=== PATIENT | male | born 1960 | race Caucasian/White ===

== ENCOUNTER 2017-04-20 17:45 | Inpatient (IN) | payer MEDICAID ==
[~2017-04-20] VITALS: Ht 190.5 cm; Wt 109.0 kg
[2017-04-20] MEDS ORDERED: SODIUM CHLORIDE FLUSH 10ML SYR IVF ONE (18:00)
[2017-04-20] MEDS ORDERED: DILTIAZEM 5 MG/ML, 5ML IVPush STA (18:13)
[2017-04-20] MEDS ORDERED: DILTIAZEM 125 MG in SODIUM CHLORIDE 0.9% 100 ML IV SCH (18:13)
[2017-04-20 18:18] LABS: BASOPHILS # (AUTO) 0.02 x10^3/uL (0-0.1); BASOPHILS % (AUTO) 0 % (0-1); EOSINOPHILS % (AUTO) 0 % (1-7); LYMPHOCYTES # (AUTO) 1.28 x10^3/uL (1-3.4); LYMPHOCYTES % (AUTO) 9 % (22-44); MD NO; MEAN CORPUSCULAR HEMOGLOBIN 32.7 pg (27.5-34.5); MEAN CORPUSCULAR HGB CONC 32.8 g/dL (33.2-36.2); MEAN CORPUSCULAR VOLUME 99.6 fL (81-97); MEAN PLATELET VOLUME 9.2 fL (7.4-10.4); MONOCYTES # (AUTO) 1.16 x10^3/uL (0.2-0.8); MONOCYTES % (AUTO) 8 % (2-9); NEUTROPHILS # (AUTO) 12.59 x10^3/uL (1.8-6.8); NEUTROPHILS % (AUTO) 84 % (42-75); PLATELET COUNT 134 x10^3/uL (130-400); RED BLOOD COUNT 6.07 x10^6/uL (4.38-5.82); RED CELL DISTRIBUTION WIDTH 17.5 % (9.4-14.8)
[2017-04-20] MEDS ORDERED: ADENOSINE 6 MG/2 ML ONE (18:18)
[2017-04-20] MEDS ORDERED: DILTIAZEM 5 MG/ML, 5ML ONE (18:25)
[2017-04-20 18:30] LABS: ALBUMIN 2.9 g/dL (3.4-5.0); ANION GAP 11 mmol/L (5-15); CALCIUM 9.4 mg/dL (8.5-10.1); CHLORIDE 94 mmol/L (98-107); CREATININE 1.65 mg/dL (0.7-1.3)
[2017-04-20] MEDS ORDERED: PLEASE ENTER HEIGHT AND WEIGHT MC SCH ×2 (18:30→19:30)
[2017-04-20 18:36] LABS: TROPONIN I 0.333 ng/mL (0.000-0.045)
[2017-04-20 19:00] LABS: INTERNATIONAL NORMALIZED RATIO 1.34 (0.93-1.1); PROTHROMBIN TIME 13.7 Seconds (9.6-11.5)
[2017-04-20] MEDS ORDERED: SODIUM CHLORIDE 0.9% 1,000ML IVBOLUS ONE ×2 (19:00→21:30)
[2017-04-20] MEDS ORDERED: LABETALOL 5MG/ML, 20ML IVPush STA (19:07)
[2017-04-20] MEDS ORDERED: LABETALOL 5MG/ML, 20ML ONE (19:09)
[2017-04-20] MEDS ORDERED: HEPARIN 25,000 UNITS/500ML PMX 500 ML IV PRN (20:00)
[2017-04-20] MEDS ORDERED: LABETALOL 5MG/ML, 20ML IVPush ONE (20:00)
[2017-04-20] MEDS ORDERED: HEPARIN 5,000 UNITS/ML, 1ML IV ONE (20:00)
[2017-04-20] MEDS ORDERED: HEPARIN 5,000 UNITS/ML, 1ML ONE (20:06)
[2017-04-20] MEDS ORDERED: HEPARIN 25,000 UNITS/500ML PMX 500 ML ONE (20:06)
[2017-04-20] MEDS ORDERED: OMNIPAQUE 350 MG/ML, 150 ML BOTTLE ONE (20:13)
[2017-04-20] MEDS ORDERED: DIGOXIN 0.25 MG/ML, 2ML ONE (20:38)
[2017-04-20] MEDS ORDERED: LEVOFLOXACIN/PMX 750MG/150ML 150 ML ONE (20:46)
[2017-04-20] MEDS ORDERED: DIGOXIN 0.25 MG/ML, 2ML IVPush ONE (21:00)
[2017-04-20] MEDS ORDERED: SODIUM CHLORIDE 0.9%, 500ML IVBOLUS ONE (21:00)
[2017-04-20] MEDS ORDERED: LEVOFLOXACIN/PMX 750MG/150ML 150 ML IV ONE (21:00)
[2017-04-20] MEDS ORDERED: NYSTATIN TOPICAL POWDER 15GM TP ONE (21:46)
[2017-04-20] MEDS ORDERED: THROMBIN 20,000 UNIT VIAL TP ONE ×2 (22:21→23:30)
[2017-04-20] MEDS ORDERED: HEPARIN 1,000 UNITS/ML, 30ML ONE (22:21)
[2017-04-20] MEDS ORDERED: PROTAMINE SULFATE 10 MG/ML, 5ML ONE (22:21)
[2017-04-20] MEDS ORDERED: BUPIVACAINE/PF 0.5% ONE (22:22)
[2017-04-20] MEDS ORDERED: EPINEPHRINE 1 MG/ML, 1ML ONE (22:22)
[2017-04-20] MEDS ORDERED: SODIUM CHLORIDE 0.9% 1,000 ML IV SCH (22:31)
[2017-04-20] MEDS ORDERED: MIDAZOLAM 1 MG/ML, 2ML ONE (22:41)
[2017-04-20] MEDS ORDERED: FENTANYL PF 100 MCG/2ML ONE (22:41)
[2017-04-20] MEDS ORDERED: BACITRACIN 50,000 UNIT ONE (22:48)
[2017-04-20] MEDS ORDERED: ROCURONIUM 10 MG/ML,10ML ONE (22:55)
[2017-04-20] MEDS ORDERED: CALCIUM CHLORIDE 10%, 10ML SYR ONE (22:55)
[2017-04-20] MEDS ORDERED: CEFAZOLIN 1,000 MG ONE (22:55)
[2017-04-20] MEDS ORDERED: SUCCINYLCHOLINE 20 MG/ML, 10ML ONE (22:55)
[2017-04-20] MEDS ORDERED: ETOMIDATE 40 MG/20 ML ONE (22:55)
[2017-04-20] MEDS ORDERED: ONDANSETRON 2MG/ML, 2ML IVPush PRN (23:00)
[2017-04-20] MEDS ORDERED: ACETAMINOPHEN 325 MG TABLET PO PRN (23:00)
[2017-04-20] MEDS ORDERED: PHARMACY INSTRUCTION MC SCH (23:00)
[2017-04-20] MEDS ORDERED: DILTIAZEM 5 MG/ML, 5ML IVPush PRN (23:00)
[2017-04-20] MEDS ORDERED: VANCOMYCIN PER PHARMACY MC PRN (23:00)
[2017-04-20] MEDS ORDERED: BUPIVACAINE/PF-EPI 0.5% 1:200K IM ONE (23:29)
[2017-04-20] MEDS ORDERED: HEPARIN 1,000 UNITS/ML, 30ML IVPush ONE (23:30)
[2017-04-20] MEDS ORDERED: BACITRACIN 50,000 UNIT IRRIG ONE (23:32)
[2017-04-21] MEDS ORDERED: VISIPAQUE 270 MG/ML, 50ML BOTTLE IV ONE (00:33)
[2017-04-21] MEDS ORDERED: LACTATED RINGERS 1,000 ML IV SCH (00:54)
[2017-04-21] MEDS ORDERED: PHARMACOKINETIC MONITORING MC PRN (01:00)
[2017-04-21 01:29] LABS: ANION GAP 9 mmol/L (5-15); CALCIUM 9.3 mg/dL (8.5-10.1); CHLORIDE 99 mmol/L (98-107); CREATININE 1.27 mg/dL (0.7-1.3)
[2017-04-21] MEDS ORDERED: VANCOMYCIN 2,800 MG in SODIUM CHLORIDE 0.9% 500 ML IV ONE (01:30)
[2017-04-21] MEDS: PIPERACILLIN/TAZO/PMX 3.375GM 50 ML IV SCH ×2 (01:53→08:28)
[2017-04-21] MEDS ORDERED: AMIODARONE 150 MG in DEXTROSE 5% 100 ML IV ONE (02:30)
[2017-04-21] MEDS ORDERED: FILTER 0.22 MICRON IV PRN (02:30)
[2017-04-21 02:35] LABS: BASOPHILS # (AUTO) 0.04 x10^3/uL (0-0.1); BASOPHILS % (AUTO) 0 % (0-1); EOSINOPHILS % (AUTO) 0 % (1-7); LYMPHOCYTES # (AUTO) 0.94 x10^3/uL (1-3.4); LYMPHOCYTES % (AUTO) 7 % (22-44); MD NO; MEAN CORPUSCULAR HEMOGLOBIN 32.4 pg (27.5-34.5); MEAN CORPUSCULAR HGB CONC 32.5 g/dL (33.2-36.2); MEAN CORPUSCULAR VOLUME 99.7 fL (81-97); MEAN PLATELET VOLUME 10.3 fL (7.4-10.4); MONOCYTES # (AUTO) 0.83 x10^3/uL (0.2-0.8); MONOCYTES % (AUTO) 6 % (2-9); NEUTROPHILS # (AUTO) 12.68 x10^3/uL (1.8-6.8); NEUTROPHILS % (AUTO) 88 % (42-75); PLATELET COUNT 133 x10^3/uL (130-400); RED BLOOD COUNT 5.21 x10^6/uL (4.38-5.82); RED CELL DISTRIBUTION WIDTH 17.8 % (9.4-14.8)
[2017-04-21] MEDS: AMIODARONE 900 MG in DEXTROSE 5% 482 ML IV PRN ×2 (02:47→22:11)
[2017-04-21 03:48] VITALS: BP 112/86
[2017-04-21 04:00] VITALS: BP 116/96
[2017-04-21] MEDS ORDERED: HEPARIN 25,000 UNITS/500ML PMX 500 ML IV PRN (05:00)
[2017-04-21 05:36] LABS: MEAN CORPUSCULAR HEMOGLOBIN 33.4 pg (27.5-34.5); MEAN CORPUSCULAR HGB CONC 33.6 g/dL (33.2-36.2); MEAN CORPUSCULAR VOLUME 99.3 fL (81-97); MEAN PLATELET VOLUME 9.7 fL (7.4-10.4); PLATELET COUNT 122 x10^3/uL (130-400); RED BLOOD COUNT 5.34 x10^6/uL (4.38-5.82); RED CELL DISTRIBUTION WIDTH 17.7 % (9.4-14.8)
[2017-04-21 05:38] LABS: ALANINE AMINOTRANSFERASE 199 U/L (12-78); ALBUMIN 2.3 g/dL (3.4-5.0); ANION GAP 11 mmol/L (5-15); CALCIUM 8.6 mg/dL (8.5-10.1); CHLORIDE 99 mmol/L (98-107)
[2017-04-21] MEDS: PROPOFOL 100 ML IV PRN ×4 (05:39→18:30)
[2017-04-21 05:43] LABS: ALKALINE PHOSPHATASE 89 U/L (45-117); TOTAL PROTEIN 6.2 g/dL (6.4-8.2); TROPONIN I 0.297 ng/mL (0.000-0.045)
[2017-04-21 06:09] LABS: BASOPHILS # (AUTO) 0.06 x10^3/uL (0-0.1); BASOPHILS % (AUTO) 0 % (0-1); EOSINOPHILS % (AUTO) 0 % (1-7); LYMPHOCYTES # (AUTO) 1.38 x10^3/uL (1-3.4); LYMPHOCYTES % (AUTO) 8 % (22-44); MD SCAN; MONOCYTES # (AUTO) 1.51 x10^3/uL (0.2-0.8); MONOCYTES % (AUTO) 9 % (2-9); NEUTROPHILS # (AUTO) 14.01 x10^3/uL (1.8-6.8); NEUTROPHILS % (AUTO) 83 % (42-75)
[2017-04-21] MEDS: HEPARIN 25,000 UNITS/500ML PMX 500 ML IV PRN ×2 (06:13→22:13)
[2017-04-21 06:51] LABS: CULTURE INDICATED? YES; MICROSCOPIC INDICATED
[2017-04-21] MEDS: THIAMINE 100 MG, FOLIC ACID 1 MG, MVI ADULT 10 ML in SODIUM CHLORIDE 0.9% 1,000 ML IV SCH (08:47)
[2017-04-21] MEDS: PANTOPRAZOLE 40 MG IV IVPush SCH (08:47)
[2017-04-21] MEDS: SODIUM CHLORIDE 0.45% 1,000 ML IV SCH ×2 (08:48→23:00)
[2017-04-21] MEDS ORDERED: FAMOTIDINE 20 MG/2 ML IVPush SCH (09:00)
[2017-04-21] MEDS ORDERED: AMIODARONE 50 MG/ML, 3ML IVPush ONE (09:30)
[2017-04-21] MEDS ORDERED: FILTER 0.22 MICRON IV ONE (09:30)
[2017-04-21] MEDS ORDERED: AMIODARONE 300 MG in DEXTROSE 5% 100 ML IV ONE (09:30)
[2017-04-21] MEDS: VANCOMYCIN 2,000 MG in SODIUM CHLORIDE 0.9% 500 ML IV SCH (16:36)
[2017-04-21] MEDS: PIPERACILLIN/TAZO/PMX 4.5GM 100 ML IV SCH ×2 (16:36→22:13)
[2017-04-21] MEDS: NYSTATIN TOPICAL POWDER 15GM TP SCH ×2 (17:00→20:02)
[2017-04-21] MEDS: NICOTINE 14MG/24 HR PATCH.TD24 TD SCH (20:02)
[2017-04-21] MEDS: HEPARIN 5,000 UNITS/ML, 1ML IV PRN (20:20)
[2017-04-21 20:57] LABS: HIT RESULT POSITIVE (NEGATIVE)
[2017-04-21 23:47] LABS: ALANINE AMINOTRANSFERASE 144 U/L (12-78); ALBUMIN 1.7 g/dL (3.4-5.0); ANION GAP 7 mmol/L (5-15); CHLORIDE 103 mmol/L (98-107); CREATININE 0.85 mg/dL (0.7-1.3)
[2017-04-21 23:49] LABS: ALKALINE PHOSPHATASE 78 U/L (45-117); BILIRUBIN,TOTAL 2.8 mg/dL (0.2-1.0); TOTAL PROTEIN 5.2 g/dL (6.4-8.2)
[2017-04-22] MEDS: PROPOFOL 100 ML IV PRN ×3 (01:36→11:49)
[2017-04-22] MEDS: PIPERACILLIN/TAZO/PMX 4.5GM 100 ML IV SCH ×4 (03:54→21:52)
[2017-04-22 04:00] VITALS: BP 111/69
[2017-04-22] MEDS: HEPARIN 5,000 UNITS/ML, 1ML IV PRN (04:19)
[2017-04-22] MEDS: VANCOMYCIN 2,000 MG in SODIUM CHLORIDE 0.9% 500 ML IV SCH ×3 (04:42→17:48)
[2017-04-22 06:34] LABS: ALANINE AMINOTRANSFERASE 131 U/L (12-78); ALBUMIN 1.7 g/dL (3.4-5.0); ANION GAP 9 mmol/L (5-15); CALCIUM 7.9 mg/dL (8.5-10.1); CHLORIDE 103 mmol/L (98-107); CREATININE 0.86 mg/dL (0.7-1.3)
[2017-04-22 06:36] LABS: ALKALINE PHOSPHATASE 74 U/L (45-117); BILIRUBIN,TOTAL 2.8 mg/dL (0.2-1.0); TOTAL PROTEIN 5.3 g/dL (6.4-8.2)
[2017-04-22 06:41] LABS: MEAN CORPUSCULAR HEMOGLOBIN 33.5 pg (27.5-34.5); MEAN CORPUSCULAR HGB CONC 34.2 g/dL (33.2-36.2); MEAN CORPUSCULAR VOLUME 97.8 fL (81-97); MEAN PLATELET VOLUME 10.1 fL (7.4-10.4); PLATELET COUNT 115 x10^3/uL (130-400); RED BLOOD COUNT 4.82 x10^6/uL (4.38-5.82)
[2017-04-22 07:08] LABS: MD YES
[2017-04-22 07:25] LABS: ANISOCYTOSIS 1+; BANDS%(MANUAL) 3 % (0-7); EOS#(MANUAL) 0.13 x10^3/uL (0.0-0.4); EOS% (MANUAL) 1 % (1-7); LYMPH#(MANUAL) 1.61 x10^3/uL (1-3.4); LYMPHS% (MANUAL) 12 % (22-44); MONOS#(MANUAL) 0.67 x10^3/uL (0.3-2.7); MONOS% (MANUAL) 5 % (2-9); SEG#(MANUAL) 10.59 x10^3/uL (1.8-6.8); SEGS% (MANUAL) 79 % (42-75)
[2017-04-22 07:26] LABS: <PLATELET ESTIMATE> DECREASED; LARGE PLATELETS 1+; POLYCHROMASIA 1+
[2017-04-22] MEDS: PANTOPRAZOLE 40 MG IV IVPush SCH (08:33)
[2017-04-22] MEDS ORDERED: AMIODARONE 150 MG in DEXTROSE 5% 100 ML IV ONE ×2 (09:00→10:00)
[2017-04-22] MEDS: SODIUM CHLORIDE 0.45% 1,000 ML IV SCH ×2 (09:00→17:52)
[2017-04-22] MEDS: NICOTINE 14MG/24 HR PATCH.TD24 TD SCH (09:00)
[2017-04-22] MEDS ORDERED: AMIODARONE 50 MG/ML, 3ML IVPush ONE (10:00)
[2017-04-22] MEDS: THIAMINE 100 MG, FOLIC ACID 1 MG, MVI ADULT 10 ML in SODIUM CHLORIDE 0.9% 1,000 ML IV SCH (10:40)
[2017-04-22] MEDS: NYSTATIN TOPICAL POWDER 15GM TP SCH ×2 (10:44→21:52)
[2017-04-22] MEDS: FUROSEMIDE 40 MG/4 ML IV SCH ×2 (10:44→21:52)
[2017-04-22] MEDS: ARGATROBAN/NACL 50 MG/50 ML 50 ML IV SCH ×2 (11:30→21:48)
[2017-04-22] MEDS ORDERED: FENTANYL PF 100 MCG/2ML ONE (12:55)
[2017-04-22] MEDS ORDERED: FENTANYL PF 100 MCG/2ML IVPush ONE (13:30)
[2017-04-22] MEDS: CARVEDILOL 3.125 MG TABLET PO SCH (17:48)
[2017-04-23] MEDS: PIPERACILLIN/TAZO/PMX 4.5GM 100 ML IV SCH ×4 (03:32→21:49)
[2017-04-23 04:38] LABS: BASOPHILS # (AUTO) 0.06 x10^3/uL (0-0.1); BASOPHILS % (AUTO) 0 % (0-1); EOSINOPHILS # (AUTO) 0.04 x10^3/uL (0-0.4); EOSINOPHILS % (AUTO) 0 % (1-7); LYMPHOCYTES % (AUTO) 6 % (22-44); MD NO; MEAN CORPUSCULAR HEMOGLOBIN 33.3 pg (27.5-34.5); MEAN CORPUSCULAR VOLUME 97.8 fL (81-97); MEAN PLATELET VOLUME 9.6 fL (7.4-10.4); MONOCYTES # (AUTO) 0.89 x10^3/uL (0.2-0.8); MONOCYTES % (AUTO) 6 % (2-9); NEUTROPHILS # (AUTO) 12.08 x10^3/uL (1.8-6.8); NEUTROPHILS % (AUTO) 87 % (42-75); PLATELET COUNT 126 x10^3/uL (130-400); RED BLOOD COUNT 4.86 x10^6/uL (4.38-5.82); RED CELL DISTRIBUTION WIDTH 17.9 % (9.4-14.8)
[2017-04-23] MEDS: HYDROmorphone 2 MG/ML, 1ML IVPush PRN ×2 (04:40→11:47)
[2017-04-23 04:44] LABS: ALBUMIN 1.7 g/dL (3.4-5.0); ANION GAP 8 mmol/L (5-15); CHLORIDE 97 mmol/L (98-107)
[2017-04-23 04:47] LABS: ALANINE AMINOTRANSFERASE 120 U/L (12-78); ALKALINE PHOSPHATASE 78 U/L (45-117); BILIRUBIN,TOTAL 3.2 mg/dL (0.2-1.0); CREATININE 1.07 mg/dL (0.7-1.3); TOTAL PROTEIN 5.6 g/dL (6.4-8.2); VANCOMYCIN,TROUGH 27.8 mcg/mL (5.0-10.0)
[2017-04-23] MEDS: VANCOMYCIN 2,000 MG in SODIUM CHLORIDE 0.9% 500 ML IV SCH ×2 (05:00→18:15)
[2017-04-23] MEDS: CARVEDILOL 3.125 MG TABLET PO SCH ×2 (06:16→18:14)
[2017-04-23] MEDS: AMIODARONE 900 MG in DEXTROSE 5% 482 ML IV PRN (07:30)
[2017-04-23] MEDS: ARGATROBAN/NACL 50 MG/50 ML 50 ML IV SCH ×2 (07:32→20:26)
[2017-04-23] MEDS: PANTOPRAZOLE 40 MG IV IVPush SCH (07:33)
[2017-04-23] MEDS: THIAMINE 100 MG, FOLIC ACID 1 MG, MVI ADULT 10 ML in SODIUM CHLORIDE 0.9% 1,000 ML IV SCH (07:54)
[2017-04-23] MEDS: RAMIPRIL 2.5 MG CAPSULE PO SCH (08:56)
[2017-04-23] MEDS: NYSTATIN TOPICAL POWDER 15GM TP SCH ×2 (08:56→21:00)
[2017-04-23] MEDS ORDERED: ALBUTEROL SULFATE 2.5 MG/3 ML ONE (09:03)
[2017-04-23] MEDS: FUROSEMIDE 40 MG/4 ML IV SCH ×2 (09:12→19:58)
[2017-04-23] MEDS ORDERED: AMIODARONE 150 MG in DEXTROSE 5% 100 ML IV ONE (12:30)
[2017-04-23] MEDS ORDERED: RACEPINEPHRINE INH 2.25%, 0.5ML NPPB PRN (12:30)
[2017-04-23] MEDS: DEXAMETHASONE 4 MG/ML, 1ML IVPush SCH ×3 (12:42→23:48)
[2017-04-24] MEDS: ALBUTEROL/IPRATROPIUM 2.5MG/0.5MG, 3 ML NPPB SCH ×7 (00:05→20:00)
[2017-04-24 04:01] VITALS: BP 140/89
[2017-04-24] MEDS: PIPERACILLIN/TAZO/PMX 4.5GM 100 ML IV SCH ×4 (04:11→21:45)
[2017-04-24 04:18] LABS: MEAN CORPUSCULAR HEMOGLOBIN 32.7 pg (27.5-34.5); MEAN CORPUSCULAR HGB CONC 32.8 g/dL (33.2-36.2); MEAN CORPUSCULAR VOLUME 99.8 fL (81-97); MEAN PLATELET VOLUME 9.2 fL (7.4-10.4); PLATELET COUNT 146 x10^3/uL (130-400); RED CELL DISTRIBUTION WIDTH 17.5 % (9.4-14.8)
[2017-04-24 04:21] LABS: ANION GAP 7 mmol/L (5-15); CALCIUM 8.6 mg/dL (8.5-10.1); CHLORIDE 97 mmol/L (98-107)
[2017-04-24 04:30] LABS: BASOPHILS # (AUTO) 0.01 x10^3/uL (0-0.1); BASOPHILS % (AUTO) 0 % (0-1); EOSINOPHILS % (AUTO) 0 % (1-7); LYMPHOCYTES # (AUTO) 0.37 x10^3/uL (1-3.4); LYMPHOCYTES % (AUTO) 2 % (22-44); MD SCAN; MONOCYTES # (AUTO) 0.37 x10^3/uL (0.2-0.8); MONOCYTES % (AUTO) 2 % (2-9); NEUTROPHILS # (AUTO) 16.06 x10^3/uL (1.8-6.8); NEUTROPHILS % (AUTO) 96 % (42-75)
[2017-04-24] MEDS: DEXAMETHASONE 4 MG/ML, 1ML IVPush SCH ×4 (06:27→23:58)
[2017-04-24] MEDS: CARVEDILOL 3.125 MG TABLET PO SCH ×2 (06:27→17:51)
[2017-04-24 06:55] LABS: PROTHROMBIN TIME 47.9 Seconds (9.6-11.5)
[2017-04-24 06:56] LABS: INTERNATIONAL NORMALIZED RATIO 4.8 (0.93-1.1)
[2017-04-24] MEDS: PANTOPRAZOLE 40 MG IV IVPush SCH (07:37)
[2017-04-24] MEDS ORDERED: BUPIVACAINE/PF 0.5% ONE (08:00)
[2017-04-24] MEDS ORDERED: EPINEPHRINE 1 MG/ML, 1ML ONE (08:01)
[2017-04-24] MEDS ORDERED: BACITRACIN 50,000 UNIT ONE (08:01)
[2017-04-24] MEDS ORDERED: HEPARIN 1,000 UNITS/ML, 30ML ONE (08:01)
[2017-04-24] MEDS ORDERED: THROMBIN 20,000 UNIT VIAL TP ONE (08:01)
[2017-04-24] MEDS ORDERED: MIDAZOLAM 1 MG/ML, 2ML ONE ×2 (08:58→12:51)
[2017-04-24] MEDS ORDERED: CEFAZOLIN 1,000 MG ONE ×3 (08:58→09:16)
[2017-04-24] MEDS ORDERED: SUFentanil 50 MCG/ML, 1ML ONE (08:58)
[2017-04-24] MEDS ORDERED: LIDOCAINE-MPF 2% ,5ML ONE (08:58)
[2017-04-24] MEDS ORDERED: SODIUM CHLORIDE 0.9% PF 10ML ONE ×2 (08:58)
[2017-04-24] MEDS ORDERED: PROPOFOL 10 MG/ML, 20ML ONE (08:59)
[2017-04-24] MEDS: NYSTATIN TOPICAL POWDER 15GM TP SCH ×2 (09:00→21:44)
[2017-04-24] MEDS: MULTIVITAMIN LIQUID PO SCH (09:00)
[2017-04-24] MEDS: RAMIPRIL 2.5 MG CAPSULE PO SCH (09:00)
[2017-04-24] MEDS: FOLIC ACID 1 MG TABLET PO SCH (09:00)
[2017-04-24] MEDS: THIAMINE 100MG TABLET PO SCH (09:00)
[2017-04-24] MEDS ORDERED: NEOSTIGMINE 1 MG/ML, 10ML ONE (09:16)
[2017-04-24] MEDS ORDERED: ROCURONIUM 10 MG/ML,10ML ONE (09:16)
[2017-04-24] MEDS ORDERED: SODIUM CHLORIDE 0.9% IV ONE (11:00)
[2017-04-24] MEDS ORDERED: NITROGLYCERIN IV ONE (11:00)
[2017-04-24] MEDS: ARGATROBAN/NACL 50 MG/50 ML 50 ML IV SCH (11:10)
[2017-04-24] MEDS ORDERED: VISIPAQUE 270 MG/ML, 50ML BOTTLE ONE (12:30)
[2017-04-24] MEDS ORDERED: BUPIVACAINE/PF-EPI 0.5% 1:200K INFIL ONE (12:30)
[2017-04-24] MEDS ORDERED: ALBUTEROL HFA 90 MCG/SPRAY ONE (12:51)
[2017-04-24 15:12] LABS: MEAN CORPUSCULAR HEMOGLOBIN 32.9 pg (27.5-34.5); MEAN CORPUSCULAR HGB CONC 33.1 g/dL (33.2-36.2); MEAN CORPUSCULAR VOLUME 99.3 fL (81-97); MEAN PLATELET VOLUME 9.1 fL (7.4-10.4); PLATELET COUNT 161 x10^3/uL (130-400); RED BLOOD COUNT 4.95 x10^6/uL (4.38-5.82); RED CELL DISTRIBUTION WIDTH 17.7 % (9.4-14.8)
[2017-04-24 15:19] LABS: ANION GAP 5 mmol/L (5-15); CALCIUM 8.9 mg/dL (8.5-10.1); CHLORIDE 99 mmol/L (98-107); CREATININE 0.84 mg/dL (0.7-1.3)
[2017-04-24] MEDS ORDERED: FUROSEMIDE 40 MG/4 ML IV ONE (15:30)
[2017-04-24] MEDS: AMIODARONE 900 MG in DEXTROSE 5% 482 ML IV PRN (15:38)
[2017-04-24 15:45] LABS: BASOPHILS # (AUTO) 0.03 x10^3/uL (0-0.1); BASOPHILS % (AUTO) 0 % (0-1); EOSINOPHILS % (AUTO) 0 % (1-7); LYMPHOCYTES # (AUTO) 0.52 x10^3/uL (1-3.4); LYMPHOCYTES % (AUTO) 3 % (22-44); MD SCAN; MONOCYTES # (AUTO) 0.52 x10^3/uL (0.2-0.8); MONOCYTES % (AUTO) 3 % (2-9); NEUTROPHILS # (AUTO) 17.89 x10^3/uL (1.8-6.8); NEUTROPHILS % (AUTO) 94 % (42-75)
[2017-04-24] MEDS: HYDROmorphone 2 MG/ML, 1ML IVPush PRN (17:49)
[2017-04-24] MEDS: VANCOMYCIN 2,000 MG in SODIUM CHLORIDE 0.9% 500 ML IV SCH (17:51)
[2017-04-25] MEDS: HYDROmorphone 2 MG/ML, 1ML IVPush PRN (02:22)
[2017-04-25 04:00] VITALS: BP 102/66
[2017-04-25] MEDS: ARGATROBAN/NACL 50 MG/50 ML 50 ML IV SCH ×3 (04:02→22:14)
[2017-04-25] MEDS: PIPERACILLIN/TAZO/PMX 4.5GM 100 ML IV SCH ×2 (04:07→09:35)
[2017-04-25 04:58] LABS: MEAN CORPUSCULAR HEMOGLOBIN 33.2 pg (27.5-34.5); MEAN CORPUSCULAR HGB CONC 33.8 g/dL (33.2-36.2); MEAN CORPUSCULAR VOLUME 98.3 fL (81-97); MEAN PLATELET VOLUME 8.9 fL (7.4-10.4); PLATELET COUNT 192 x10^3/uL (130-400); RED BLOOD COUNT 4.72 x10^6/uL (4.38-5.82); RED CELL DISTRIBUTION WIDTH 17.9 % (9.4-14.8)
[2017-04-25 05:12] LABS: ANION GAP 5 mmol/L (5-15); CALCIUM 8.6 mg/dL (8.5-10.1); CHLORIDE 99 mmol/L (98-107); CREATININE 0.77 mg/dL (0.7-1.3)
[2017-04-25 05:50] LABS: BASOPHILS # (AUTO) 0.01 x10^3/uL (0-0.1); BASOPHILS % (AUTO) 0 % (0-1); EOSINOPHILS % (AUTO) 0 % (1-7); LYMPHOCYTES # (AUTO) 0.39 x10^3/uL (1-3.4); LYMPHOCYTES % (AUTO) 2 % (22-44); MD SCAN; MONOCYTES # (AUTO) 0.65 x10^3/uL (0.2-0.8); MONOCYTES % (AUTO) 3 % (2-9); NEUTROPHILS # (AUTO) 19.05 x10^3/uL (1.8-6.8); NEUTROPHILS % (AUTO) 95 % (42-75)
[2017-04-25] MEDS: CARVEDILOL 3.125 MG TABLET PO SCH ×2 (06:28→17:32)
[2017-04-25] MEDS: DEXAMETHASONE 4 MG/ML, 1ML IVPush SCH (06:52)
[2017-04-25] MEDS: ALBUTEROL/IPRATROPIUM 2.5MG/0.5MG, 3 ML NPPB SCH ×8 (07:00→20:00)
[2017-04-25] MEDS: PANTOPRAZOLE 40 MG IV IVPush SCH (09:16)
[2017-04-25] MEDS: NYSTATIN TOPICAL POWDER 15GM TP SCH ×2 (09:17→20:47)
[2017-04-25] MEDS: RAMIPRIL 2.5 MG CAPSULE PO SCH (09:17)
[2017-04-25] MEDS: THIAMINE 100MG TABLET PO SCH (09:17)
[2017-04-25] MEDS: FOLIC ACID 1 MG TABLET PO SCH (09:17)
[2017-04-25] MEDS: MULTIVITAMIN LIQUID PO SCH (09:17)
[2017-04-25] MEDS: AMPICILLIN/SULBACTAM 3 GM in SODIUM CHLORIDE 0.9% 100 ML IV SCH ×2 (14:55→20:47)
[2017-04-25] MEDS: AMIODARONE 900 MG in DEXTROSE 5% 482 ML IV PRN (22:34)
[2017-04-26] MEDS: AMPICILLIN/SULBACTAM 3 GM in SODIUM CHLORIDE 0.9% 100 ML IV SCH ×4 (03:19→19:55)
[2017-04-26 04:00] VITALS: BP 112/78
[2017-04-26] MEDS: CARVEDILOL 3.125 MG TABLET PO SCH ×2 (05:46→17:12)
[2017-04-26 06:07] LABS: MEAN CORPUSCULAR HEMOGLOBIN 32.9 pg (27.5-34.5); MEAN CORPUSCULAR HGB CONC 33.6 g/dL (33.2-36.2); MEAN CORPUSCULAR VOLUME 98.1 fL (81-97); MEAN PLATELET VOLUME 8.6 fL (7.4-10.4); PLATELET COUNT 177 x10^3/uL (130-400); RED BLOOD COUNT 4.46 x10^6/uL (4.38-5.82); RED CELL DISTRIBUTION WIDTH 17.6 % (9.4-14.8)
[2017-04-26 06:18] LABS: ANION GAP 4 mmol/L (5-15); CALCIUM 8.6 mg/dL (8.5-10.1); CHLORIDE 97 mmol/L (98-107); CREATININE 0.69 mg/dL (0.7-1.3)
[2017-04-26 06:34] LABS: BASOPHILS # (AUTO) 0.02 x10^3/uL (0-0.1); BASOPHILS % (AUTO) 0 % (0-1); EOSINOPHILS % (AUTO) 0 % (1-7); LYMPHOCYTES % (AUTO) 2 % (22-44); MD SCAN; MONOCYTES # (AUTO) 1.09 x10^3/uL (0.2-0.8); MONOCYTES % (AUTO) 5 % (2-9); NEUTROPHILS % (AUTO) 92 % (42-75)
[2017-04-26] MEDS: ALBUTEROL/IPRATROPIUM 2.5MG/0.5MG, 3 ML NPPB SCH ×7 (07:25→19:07)
[2017-04-26] MEDS: PANTOPRAZOLE 40 MG IV IVPush SCH (07:48)
[2017-04-26] MEDS: AMIODARONE 200 MG TABLET PO SCH ×2 (08:47→19:55)
[2017-04-26] MEDS: RAMIPRIL 2.5 MG CAPSULE PO SCH (08:47)
[2017-04-26] MEDS: FOLIC ACID 1 MG TABLET PO SCH (08:47)
[2017-04-26] MEDS: NYSTATIN TOPICAL POWDER 15GM TP SCH ×2 (08:48→19:55)
[2017-04-26] MEDS: THIAMINE 100MG TABLET PO SCH (08:48)
[2017-04-26] MEDS: MULTIVITAMIN LIQUID PO SCH (08:48)
[2017-04-26] MEDS ORDERED: FUROSEMIDE 40 MG/4 ML IV ONE (10:30)
[2017-04-26 13:26] VITALS: BP 102/69
[2017-04-26] MEDS: ARGATROBAN/NACL 50 MG/50 ML 50 ML IV SCH (14:57)
[2017-04-26 18:32] VITALS: BP 95/65
[2017-04-27 01:25] VITALS: BP 117/82
[2017-04-27] MEDS: AMPICILLIN/SULBACTAM 3 GM in SODIUM CHLORIDE 0.9% 100 ML IV SCH ×4 (02:20→20:35)
[2017-04-27] MEDS: ARGATROBAN/NACL 50 MG/50 ML 50 ML IV SCH ×3 (03:48→13:55)
[2017-04-27 05:52] LABS: BASOPHILS # (AUTO) 0.04 x10^3/uL (0-0.1); BASOPHILS % (AUTO) 0 % (0-1); EOSINOPHILS # (AUTO) 0.05 x10^3/uL (0-0.4); EOSINOPHILS % (AUTO) 0 % (1-7); LYMPHOCYTES # (AUTO) 0.87 x10^3/uL (1-3.4); LYMPHOCYTES % (AUTO) 5 % (22-44); MD NO; MEAN CORPUSCULAR HEMOGLOBIN 32.7 pg (27.5-34.5); MEAN CORPUSCULAR HGB CONC 33.3 g/dL (33.2-36.2); MEAN CORPUSCULAR VOLUME 98.3 fL (81-97); MEAN PLATELET VOLUME 8.6 fL (7.4-10.4); MONOCYTES # (AUTO) 1.16 x10^3/uL (0.2-0.8); MONOCYTES % (AUTO) 7 % (2-9); NEUTROPHILS # (AUTO) 14.94 x10^3/uL (1.8-6.8); NEUTROPHILS % (AUTO) 88 % (42-75); PLATELET COUNT 173 x10^3/uL (130-400); RED BLOOD COUNT 4.54 x10^6/uL (4.38-5.82); RED CELL DISTRIBUTION WIDTH 17.2 % (9.4-14.8)
[2017-04-27 06:05] LABS: ANION GAP 3 mmol/L (5-15); CALCIUM 8.5 mg/dL (8.5-10.1); CHLORIDE 97 mmol/L (98-107); CREATININE 0.55 mg/dL (0.7-1.3)
[2017-04-27] MEDS: ALBUTEROL/IPRATROPIUM 2.5MG/0.5MG, 3 ML NPPB SCH ×6 (06:49→18:44)
[2017-04-27] MEDS: AMIODARONE 200 MG TABLET PO SCH ×2 (08:53→20:35)
[2017-04-27] MEDS: CARVEDILOL 3.125 MG TABLET PO SCH ×2 (08:53→18:01)
[2017-04-27 08:56] VITALS: BP 108/76
[2017-04-27] MEDS: NYSTATIN TOPICAL POWDER 15GM TP SCH ×2 (10:02→20:35)
[2017-04-27] MEDS ORDERED: SENNA/DOCUSATE TABLET ONE (10:04)
[2017-04-27] MEDS: SENNA/DOCUSATE TABLET PO SCH (10:16)
[2017-04-27] MEDS: MULTIVITAMIN LIQUID PO SCH (10:17)
[2017-04-27] MEDS: RAMIPRIL 2.5 MG CAPSULE PO SCH (10:17)
[2017-04-27] MEDS: FUROSEMIDE 40 MG/4 ML IV SCH (13:01)
[2017-04-27 14:39] VITALS: BP 114/70
[2017-04-27 19:53] VITALS: BP 103/70
[2017-04-28] MEDS: AMPICILLIN/SULBACTAM 3 GM in SODIUM CHLORIDE 0.9% 100 ML IV SCH ×3 (02:07→14:10)
[2017-04-28 02:15] VITALS: BP 117/76
[2017-04-28] MEDS: ARGATROBAN/NACL 50 MG/50 ML 50 ML IV SCH ×3 (02:31→23:05)
[2017-04-28 05:04] LABS: BASOPHILS # (AUTO) 0.07 x10^3/uL (0-0.1); BASOPHILS % (AUTO) 1 % (0-1); EOSINOPHILS # (AUTO) 0.19 x10^3/uL (0-0.4); EOSINOPHILS % (AUTO) 1 % (1-7); LYMPHOCYTES # (AUTO) 1.09 x10^3/uL (1-3.4); LYMPHOCYTES % (AUTO) 7 % (22-44); MD NO; MEAN CORPUSCULAR HEMOGLOBIN 32.6 pg (27.5-34.5); MEAN CORPUSCULAR HGB CONC 33.1 g/dL (33.2-36.2); MEAN CORPUSCULAR VOLUME 98.5 fL (81-97); MEAN PLATELET VOLUME 8.6 fL (7.4-10.4); MONOCYTES # (AUTO) 0.83 x10^3/uL (0.2-0.8); MONOCYTES % (AUTO) 5 % (2-9); NEUTROPHILS # (AUTO) 13.37 x10^3/uL (1.8-6.8); NEUTROPHILS % (AUTO) 86 % (42-75); PLATELET COUNT 202 x10^3/uL (130-400); RED BLOOD COUNT 4.54 x10^6/uL (4.38-5.82); RED CELL DISTRIBUTION WIDTH 17.6 % (9.4-14.8)
[2017-04-28 05:13] LABS: ANION GAP 1 mmol/L (5-15); CALCIUM 8.1 mg/dL (8.5-10.1); CHLORIDE 97 mmol/L (98-107); CREATININE 0.64 mg/dL (0.7-1.3)
[2017-04-28] MEDS: CARVEDILOL 3.125 MG TABLET PO SCH ×2 (06:03→23:05)
[2017-04-28] MEDS: ALBUTEROL/IPRATROPIUM 2.5MG/0.5MG, 3 ML NPPB SCH ×4 (06:35→19:38)
[2017-04-28 07:10] VITALS: BP 102/72
[2017-04-28] MEDS: RAMIPRIL 2.5 MG CAPSULE PO SCH (08:43)
[2017-04-28] MEDS: AMIODARONE 200 MG TABLET PO SCH ×2 (08:43→21:00)
[2017-04-28] MEDS: SENNA/DOCUSATE TABLET PO SCH (08:43)
[2017-04-28] MEDS: DIGOXIN 0.25 MG TABLET PO SCH (08:43)
[2017-04-28] MEDS: FUROSEMIDE 40 MG/4 ML IV SCH (08:44)
[2017-04-28] MEDS: NYSTATIN TOPICAL POWDER 15GM TP SCH ×2 (08:44→22:30)
[2017-04-28] MEDS: MULTIVITAMIN LIQUID PO SCH (08:44)
[2017-04-28] MEDS ORDERED: ARGATROBAN/NACL 50 MG/50 ML 50 ML IV SCH (09:30)
[2017-04-28 15:42] VITALS: BP 122/73
[2017-04-28] MEDS ORDERED: EPINEPHRINE 1 MG/ML, 1ML ONE (17:41)
[2017-04-28] MEDS ORDERED: BACITRACIN 50,000 UNIT ONE (17:41)
[2017-04-28] MEDS ORDERED: BUPIVACAINE/PF 0.5% ONE (17:41)
[2017-04-28] MEDS ORDERED: MIDAZOLAM 1 MG/ML, 2ML ONE (18:52)
[2017-04-28] MEDS ORDERED: FENTANYL PF 250 MCG/5ML ONE (18:52)
[2017-04-28] MEDS ORDERED: ALBUTEROL/IPRATROPIUM 2.5MG/0.5MG, 3 ML NPPB PRN (20:00)
[2017-04-28] MEDS ORDERED: PROMETHAZINE 25 MG/ML, 1ML IV PRN (20:00)
[2017-04-28] MEDS ORDERED: ALBUTEROL SULFATE 2.5 MG/3 ML NPPB PRN (20:00)
[2017-04-28] MEDS ORDERED: HYDROcodone/APAP 7.5-325MG/15ML UDC PO PRN (20:00)
[2017-04-28] MEDS ORDERED: MEPERIDINE/PF 25MG/0.5ML IVPush PRN (20:00)
[2017-04-28] MEDS ORDERED: METOPROLOL 1 MG/ML, 5ML IV PRN (20:00)
[2017-04-28] MEDS ORDERED: FENTANYL PF 100 MCG/2ML IV PRN (20:00)
[2017-04-28] MEDS ORDERED: MIDAZOLAM 1 MG/ML, 2ML IV PRN (20:00)
[2017-04-28] MEDS ORDERED: hydrALAzine 20 MG/ML, 1ML IV PRN (20:00)
[2017-04-28] MEDS ORDERED: HYDROmorphone 1 MG/ML, 1ML IV PRN (20:00)
[2017-04-28] MEDS ORDERED: ACETAMINOPHEN 325 MG TABLET PO PRN (20:00)
[2017-04-28] MEDS ORDERED: ONDANSETRON 2MG/ML, 2ML IVPush PRN (20:00)
[2017-04-28] MEDS ORDERED: LABETALOL 5MG/ML, 20ML IV PRN (20:00)
[2017-04-28] MEDS ORDERED: DIAZEPAM 5 MG/ML, 2ML IVPush PRN (20:00)
[2017-04-28] MEDS ORDERED: EPHEDRINE 50 MG/ML, 1ML IVPush PRN (20:00)
[2017-04-28] MEDS ORDERED: OXYcodone 5 MG/5 ML ORAL.SOL UDC PO PRN (20:00)
[2017-04-28] MEDS ORDERED: PROPOFOL 100 ML IV ONE (22:16)
[2017-04-28] MEDS ORDERED: GLYCOPYRROLATE 0.2MG/1ML, 5ML ONE (22:19)
[2017-04-28] MEDS ORDERED: ROCURONIUM 10 MG/ML,10ML ONE (22:19)
[2017-04-28] MEDS ORDERED: ONDANSETRON 2MG/ML, 2ML ONE (22:19)
[2017-04-28] MEDS ORDERED: NEOSTIGMINE 1 MG/ML, 10ML ONE (22:19)
[2017-04-28] MEDS ORDERED: CEFAZOLIN 1,000 MG ONE (22:19)
[2017-04-28] MEDS ORDERED: SUCCINYLCHOLINE 20 MG/ML, 10ML ONE (22:19)
[2017-04-28] MEDS ORDERED: PROPOFOL 10 MG/ML, 20ML ONE (22:19)
[2017-04-28] MEDS ORDERED: DEXAMETHASONE 4 MG/ML, 1ML ONE (22:19)
[2017-04-28 22:39] LABS: ALBUMIN 1.7 g/dL (3.4-5.0); ANION GAP 3 mmol/L (5-15); CALCIUM 8.8 mg/dL (8.5-10.1); CHLORIDE 95 mmol/L (98-107); INTERNATIONAL NORMALIZED RATIO 1.54 (0.93-1.1); PROTHROMBIN TIME 15.7 Seconds (9.6-11.5)
[2017-04-28 22:42] LABS: ALANINE AMINOTRANSFERASE 124 U/L (12-78); ALKALINE PHOSPHATASE 118 U/L (45-117); BILIRUBIN,TOTAL 2.2 mg/dL (0.2-1.0); CREATININE 0.76 mg/dL (0.7-1.3); TOTAL PROTEIN 6.2 g/dL (6.4-8.2)
[2017-04-29] MEDS: PROPOFOL 100 ML IV PRN ×2 (02:15→06:26)
[2017-04-29] MEDS: AMPICILLIN/SULBACTAM 3 GM in SODIUM CHLORIDE 0.9% 100 ML IV SCH ×4 (03:02→21:59)
[2017-04-29 04:43] LABS: BASOPHILS # (AUTO) 0.02 x10^3/uL (0-0.1); BASOPHILS % (AUTO) 0 % (0-1); EOSINOPHILS # (AUTO) 0.02 x10^3/uL (0-0.4); EOSINOPHILS % (AUTO) 0 % (1-7); LYMPHOCYTES # (AUTO) 0.52 x10^3/uL (1-3.4); LYMPHOCYTES % (AUTO) 4 % (22-44); MD NO; MEAN CORPUSCULAR HEMOGLOBIN 32.6 pg (27.5-34.5); MEAN CORPUSCULAR HGB CONC 32.9 g/dL (33.2-36.2); MONOCYTES # (AUTO) 0.39 x10^3/uL (0.2-0.8); MONOCYTES % (AUTO) 3 % (2-9); NEUTROPHILS # (AUTO) 12.71 x10^3/uL (1.8-6.8); NEUTROPHILS % (AUTO) 93 % (42-75); PLATELET COUNT 209 x10^3/uL (130-400); RED BLOOD COUNT 4.47 x10^6/uL (4.38-5.82); RED CELL DISTRIBUTION WIDTH 17.8 % (9.4-14.8)
[2017-04-29 04:51] LABS: ALANINE AMINOTRANSFERASE 94 U/L (12-78); ALBUMIN 1.5 g/dL (3.4-5.0); ANION GAP 4 mmol/L (5-15); CALCIUM 8.1 mg/dL (8.5-10.1); CHLORIDE 99 mmol/L (98-107); CREATININE 0.43 mg/dL (0.7-1.3)
[2017-04-29 04:53] LABS: ALKALINE PHOSPHATASE 95 U/L (45-117); BILIRUBIN,TOTAL 1.5 mg/dL (0.2-1.0); TOTAL PROTEIN 5.1 g/dL (6.4-8.2)
[2017-04-29 05:57] VITALS: BP 112/80
[2017-04-29] MEDS: ALBUTEROL/IPRATROPIUM 2.5MG/0.5MG, 3 ML NPPB SCH ×4 (07:02→20:00)
[2017-04-29] MEDS: SENNA/DOCUSATE TABLET PO SCH (09:00)
[2017-04-29] MEDS: NYSTATIN TOPICAL POWDER 15GM TP SCH ×2 (09:00→21:38)
[2017-04-29] MEDS: DIGOXIN 0.25 MG TABLET PO SCH (10:22)
[2017-04-29] MEDS: FUROSEMIDE 40 MG/4 ML IV SCH (10:22)
[2017-04-29] MEDS: MULTIVITAMIN LIQUID PO SCH (10:23)
[2017-04-29] MEDS: CARVEDILOL 3.125 MG TABLET PO SCH ×2 (10:23→19:52)
[2017-04-29] MEDS: AMIODARONE 200 MG TABLET PO SCH ×2 (10:23→21:38)
[2017-04-29] MEDS ORDERED: ALBUTEROL/IPRATROPIUM 2.5MG/0.5MG, 3 ML ONE (10:50)
[2017-04-29] MEDS: GABAPENTIN 300 MG CAPSULE PO SCH ×2 (11:14→21:38)
[2017-04-29 19:28] VITALS: BP 126/81
[2017-04-29] MEDS: RAMIPRIL 2.5 MG CAPSULE PO SCH (20:45)
[2017-04-29] MEDS ORDERED: ARGATROBAN/NACL 50 MG/50 ML 50 ML IV SCH (23:30)
[2017-04-30 01:03] VITALS: BP 104/63
[2017-04-30 02:22] LABS: BASOPHILS # (AUTO) 0.07 x10^3/uL (0-0.1); BASOPHILS % (AUTO) 1 % (0-1); EOSINOPHILS % (AUTO) 1 % (1-7); LYMPHOCYTES # (AUTO) 1.17 x10^3/uL (1-3.4); LYMPHOCYTES % (AUTO) 8 % (22-44); MD NO; MEAN CORPUSCULAR HEMOGLOBIN 32.2 pg (27.5-34.5); MEAN CORPUSCULAR HGB CONC 32.7 g/dL (33.2-36.2); MEAN CORPUSCULAR VOLUME 98.3 fL (81-97); MEAN PLATELET VOLUME 8.6 fL (7.4-10.4); MONOCYTES # (AUTO) 1.13 x10^3/uL (0.2-0.8); MONOCYTES % (AUTO) 8 % (2-9); NEUTROPHILS # (AUTO) 12.06 x10^3/uL (1.8-6.8); NEUTROPHILS % (AUTO) 82 % (42-75); PLATELET COUNT 245 x10^3/uL (130-400); RED BLOOD COUNT 4.11 x10^6/uL (4.38-5.82); RED CELL DISTRIBUTION WIDTH 17.6 % (9.4-14.8)
[2017-04-30 02:36] LABS: ALBUMIN 1.5 g/dL (3.4-5.0); ANION GAP 2 mmol/L (5-15); CALCIUM 7.9 mg/dL (8.5-10.1); CHLORIDE 97 mmol/L (98-107)
[2017-04-30 02:40] LABS: ALANINE AMINOTRANSFERASE 75 U/L (12-78); ALKALINE PHOSPHATASE 126 U/L (45-117); CREATININE 0.63 mg/dL (0.7-1.3); TOTAL PROTEIN 5.2 g/dL (6.4-8.2)
[2017-04-30] MEDS: ARGATROBAN/NACL 50 MG/50 ML 50 ML IV SCH ×2 (03:08→09:04)
[2017-04-30] MEDS: AMPICILLIN/SULBACTAM 3 GM in SODIUM CHLORIDE 0.9% 100 ML IV SCH ×4 (04:01→21:18)
[2017-04-30 06:36] VITALS: BP 101/70
[2017-04-30] MEDS: CARVEDILOL 3.125 MG TABLET PO SCH ×2 (06:45→17:45)
[2017-04-30] MEDS: ALBUTEROL/IPRATROPIUM 2.5MG/0.5MG, 3 ML NPPB SCH ×4 (07:00→19:36)
[2017-04-30 08:18] VITALS: BP 120/75
[2017-04-30] MEDS: RAMIPRIL 2.5 MG CAPSULE PO SCH (09:02)
[2017-04-30] MEDS: NYSTATIN TOPICAL POWDER 15GM TP SCH ×2 (09:02→21:18)
[2017-04-30] MEDS: AMIODARONE 200 MG TABLET PO SCH ×2 (09:02→21:17)
[2017-04-30] MEDS: FUROSEMIDE 40 MG/4 ML IV SCH (09:02)
[2017-04-30] MEDS: GABAPENTIN 300 MG CAPSULE PO SCH ×2 (09:03→21:17)
[2017-04-30] MEDS: DIGOXIN 0.25 MG TABLET PO SCH (09:03)
[2017-04-30] MEDS: SENNA/DOCUSATE TABLET PO SCH (09:03)
[2017-04-30] MEDS: MULTIVITAMIN LIQUID PO SCH (09:03)
[2017-04-30] MEDS ORDERED: ARGATROBAN/NACL 50 MG/50 ML 50 ML IV SCH (10:30)
[2017-04-30 14:30] VITALS: BP 110/70
[2017-04-30] MEDS ORDERED: ARGATROBAN IN 0.9 % SOD CHLOR 250 ML IV SCH (16:00)
[2017-04-30 17:00] LABS: INTERNATIONAL NORMALIZED RATIO 1.68 (0.93-1.1); PROTHROMBIN TIME 17.1 Seconds (9.6-11.5)
[2017-04-30] MEDS: POLYETHYLENE GLYCOL 17 GM PACKET PO PRN (18:22)
[2017-04-30] MEDS ORDERED: WARFARIN 7.5 MG TABLET PO-COUM ONE (18:30)
[2017-04-30 21:18] VITALS: BP 106/70
[2017-05-01 02:40] VITALS: BP 115/66
[2017-05-01] MEDS ORDERED: ARGATROBAN IN 0.9 % SOD CHLOR 250 ML IV SCH (03:29)
[2017-05-01] MEDS: AMPICILLIN/SULBACTAM 3 GM in SODIUM CHLORIDE 0.9% 100 ML IV SCH ×3 (03:35→15:58)
[2017-05-01] MEDS: ALBUTEROL/IPRATROPIUM 2.5MG/0.5MG, 3 ML NPPB SCH ×5 (04:34→20:30)
[2017-05-01 05:44] LABS: INTERNATIONAL NORMALIZED RATIO 2.78 (0.93-1.1); PROTHROMBIN TIME 28.1 Seconds (9.6-11.5)
[2017-05-01] MEDS: CARVEDILOL 3.125 MG TABLET PO SCH ×2 (06:36→18:01)
[2017-05-01] MEDS ORDERED: BISACODYL 10 MG SUPP PR PRN (07:00)
[2017-05-01 07:34] VITALS: BP 111/65
[2017-05-01] MEDS: FUROSEMIDE 40 MG/4 ML IV SCH (08:24)
[2017-05-01] MEDS: RAMIPRIL 2.5 MG CAPSULE PO SCH (08:24)
[2017-05-01] MEDS: NYSTATIN TOPICAL POWDER 15GM TP SCH ×2 (08:25→20:28)
[2017-05-01] MEDS: GABAPENTIN 300 MG CAPSULE PO SCH ×2 (08:25→20:28)
[2017-05-01] MEDS: DIGOXIN 0.25 MG TABLET PO SCH (08:25)
[2017-05-01] MEDS: MULTIVITAMIN LIQUID PO SCH (08:25)
[2017-05-01] MEDS: SENNA/DOCUSATE TABLET PO SCH (08:25)
[2017-05-01] MEDS: AMIODARONE 200 MG TABLET PO SCH ×2 (08:25→20:28)
[2017-05-01] MEDS: WARFARIN MODERAT DOSE PROTOCOL XX SCH (12:00)
[2017-05-01 14:00] VITALS: BP 104/64
[2017-05-01] MEDS: ARGATROBAN IN 0.9 % SOD CHLOR 250 ML IV SCH (14:01)
[2017-05-01] MEDS ORDERED: WARFARIN 5 MG TABLET PO-COUM ONE (17:58)
[2017-05-01] MEDS ORDERED: WARFARIN 2.5 MG TABLET PO-COUM ONE (18:00)
[2017-05-01 20:07] VITALS: BP 115/78
[2017-05-01] MEDS: AMOXICILLIN/CLAV 875-125MG TABLET PO SCH (20:28)
[2017-05-02 03:11] VITALS: BP 116/69
[2017-05-02] MEDS: CARVEDILOL 3.125 MG TABLET PO SCH ×2 (05:07→18:07)
[2017-05-02 05:23] LABS: ALBUMIN 1.6 g/dL (3.4-5.0); ANION GAP 3 mmol/L (5-15); CALCIUM 8.4 mg/dL (8.5-10.1); CHLORIDE 100 mmol/L (98-107)
[2017-05-02 05:25] LABS: CREATININE 0.55 mg/dL (0.7-1.3)
[2017-05-02 05:55] LABS: INTERNATIONAL NORMALIZED RATIO 3.11 (0.93-1.1); PROTHROMBIN TIME 31.3 Seconds (9.6-11.5)
[2017-05-02] MEDS: ALBUTEROL/IPRATROPIUM 2.5MG/0.5MG, 3 ML NPPB SCH ×4 (07:00→20:00)
[2017-05-02 08:08] VITALS: BP 112/71
[2017-05-02] MEDS: HYDROmorphone 2 MG/ML, 1ML IVPush PRN (08:21)
[2017-05-02] MEDS: GABAPENTIN 300 MG CAPSULE PO SCH ×2 (08:22→21:06)
[2017-05-02] MEDS: AMOXICILLIN/CLAV 875-125MG TABLET PO SCH (08:22)
[2017-05-02] MEDS: FUROSEMIDE 40 MG/4 ML IV SCH (08:22)
[2017-05-02] MEDS: AMIODARONE 200 MG TABLET PO SCH ×2 (08:23→20:52)
[2017-05-02] MEDS: DIGOXIN 0.25 MG TABLET PO SCH (08:23)
[2017-05-02] MEDS: MULTIVITAMIN LIQUID PO SCH (08:23)
[2017-05-02] MEDS: RAMIPRIL 2.5 MG CAPSULE PO SCH (08:23)
[2017-05-02] MEDS: NYSTATIN TOPICAL POWDER 15GM TP SCH ×2 (08:24→21:07)
[2017-05-02 08:40] VITALS: BP 129/68
[2017-05-02] MEDS: WARFARIN MODERAT DOSE PROTOCOL XX SCH (11:33)
[2017-05-02] MEDS: ARGATROBAN IN 0.9 % SOD CHLOR 250 ML IV SCH (12:49)
[2017-05-02 13:20] VITALS: BP 100/67
[2017-05-02] MEDS ORDERED: WARFARIN 2.5 MG TABLET PO-COUM ONE (18:00)
[2017-05-02 20:05] VITALS: BP 110/70
[2017-05-02] MEDS: SENNA/DOCUSATE TABLET PO SCH (20:48)
[2017-05-02] MEDS ORDERED: HYDROmorphone 1 MG/ML, 1ML ONE (20:51)
[2017-05-03 01:22] VITALS: BP 108/68
[2017-05-03] MEDS: CARVEDILOL 3.125 MG TABLET PO SCH ×2 (05:16→18:06)
[2017-05-03] MEDS ORDERED: FLU VACC QS2017-18 (36MOS+) UP/PF 0.5 ML IM-VACC ONE (05:30)
[2017-05-03] MEDS ORDERED: PNEUMOCOCCAL 23 VACCINE IM-VACC ONE (05:30)
[2017-05-03 05:58] LABS: CHLORIDE 97 mmol/L (98-107)
[2017-05-03 06:20] LABS: ANION GAP 4 mmol/L (5-15); CALCIUM 8.4 mg/dL (8.5-10.1); CREATININE 0.67 mg/dL (0.7-1.3)
[2017-05-03 06:21] LABS: ALANINE AMINOTRANSFERASE 65 U/L (12-78); ALBUMIN 1.5 g/dL (3.4-5.0); ALKALINE PHOSPHATASE 124 U/L (45-117); BILIRUBIN, DIRECT 0.4 mg/dL (0.1-0.2); BILIRUBIN,INDIRECT 0.6 mg/dL (0.0-2.0); TOTAL PROTEIN 5.8 g/dL (6.4-8.2)
[2017-05-03] MEDS: ALBUTEROL/IPRATROPIUM 2.5MG/0.5MG, 3 ML NPPB SCH ×4 (06:52→19:36)
[2017-05-03 07:22] LABS: INTERNATIONAL NORMALIZED RATIO 2.64 (0.93-1.1); PROTHROMBIN TIME 26.7 Seconds (9.6-11.5)
[2017-05-03 07:46] VITALS: BP 103/66
[2017-05-03] MEDS: GABAPENTIN 300 MG CAPSULE PO SCH ×2 (09:14→20:56)
[2017-05-03] MEDS: AMIODARONE 200 MG TABLET PO SCH ×2 (09:14→20:56)
[2017-05-03] MEDS: DIGOXIN 0.25 MG TABLET PO SCH (09:14)
[2017-05-03] MEDS: NYSTATIN TOPICAL POWDER 15GM TP SCH ×2 (09:15→20:56)
[2017-05-03] MEDS: FUROSEMIDE 40 MG/4 ML IV SCH (09:15)
[2017-05-03] MEDS: RAMIPRIL 2.5 MG CAPSULE PO SCH (09:15)
[2017-05-03] MEDS: MULTIVITAMIN LIQUID PO SCH (09:15)
[2017-05-03] MEDS ORDERED: ARGATROBAN 250 MG in SODIUM CHLORIDE 0.9% 250 ML IV PRN (10:00)
[2017-05-03] MEDS: ARGATROBAN 250 MG in SODIUM CHLORIDE 0.9% 250 ML IV PRN (11:10)
[2017-05-03] MEDS: WARFARIN MODERAT DOSE PROTOCOL XX SCH (11:13)
[2017-05-03 13:01] VITALS: BP 129/83
[2017-05-03] MEDS ORDERED: WARFARIN 7.5 MG TABLET PO-COUM ONE (18:00)
[2017-05-03 19:25] VITALS: BP 115/66
[2017-05-03] MEDS: SENNA/DOCUSATE TABLET PO SCH (20:55)
[2017-05-04 00:58] VITALS: BP 103/83
[2017-05-04] MEDS: CARVEDILOL 3.125 MG TABLET PO SCH ×2 (06:21→16:51)
[2017-05-04 06:36] LABS: INTERNATIONAL NORMALIZED RATIO 2.91 (0.93-1.1); PROTHROMBIN TIME 29.4 Seconds (9.6-11.5)
[2017-05-04] MEDS: ALBUTEROL/IPRATROPIUM 2.5MG/0.5MG, 3 ML NPPB SCH ×5 (07:00→22:58)
[2017-05-04 08:00] VITALS: BP 105/79
[2017-05-04] MEDS: SENNA/DOCUSATE TABLET PO SCH (09:00)
[2017-05-04] MEDS: NYSTATIN TOPICAL POWDER 15GM TP SCH ×2 (09:31→20:24)
[2017-05-04] MEDS: MULTIVITAMIN LIQUID PO SCH (09:31)
[2017-05-04] MEDS: DIGOXIN 0.25 MG TABLET PO SCH (09:32)
[2017-05-04] MEDS: AMIODARONE 200 MG TABLET PO SCH ×2 (09:32→20:23)
[2017-05-04] MEDS: GABAPENTIN 300 MG CAPSULE PO SCH ×2 (09:32→20:23)
[2017-05-04] MEDS: RAMIPRIL 2.5 MG CAPSULE PO SCH (09:33)
[2017-05-04] MEDS: FUROSEMIDE 40 MG/4 ML IV SCH (09:33)
[2017-05-04] MEDS: WARFARIN MODERAT DOSE PROTOCOL XX SCH (12:00)
[2017-05-04 15:37] VITALS: BP 103/67
[2017-05-04] MEDS ORDERED: WARFARIN 7.5 MG TABLET PO-COUM ONE (17:00)
[2017-05-04 20:06] VITALS: BP 101/66
[2017-05-05 02:40] VITALS: BP 105/71
[2017-05-05] MEDS: CARVEDILOL 3.125 MG TABLET PO SCH ×2 (05:48→17:09)
[2017-05-05] MEDS: ARGATROBAN 250 MG in SODIUM CHLORIDE 0.9% 250 ML IV PRN (06:06)
[2017-05-05 07:09] LABS: INTERNATIONAL NORMALIZED RATIO 3.92 (0.93-1.1); PROTHROMBIN TIME 39.3 Seconds (9.6-11.5)
[2017-05-05] MEDS: ALBUTEROL/IPRATROPIUM 2.5MG/0.5MG, 3 ML NPPB SCH ×3 (07:59→20:09)
[2017-05-05 08:43] VITALS: BP 111/74
[2017-05-05] MEDS: RAMIPRIL 2.5 MG CAPSULE PO SCH (09:00)
[2017-05-05] MEDS: NYSTATIN TOPICAL POWDER 15GM TP SCH ×2 (09:00→21:00)
[2017-05-05] MEDS: SENNA/DOCUSATE TABLET PO SCH (09:00)
[2017-05-05] MEDS: MULTIVITAMIN LIQUID PO SCH (09:01)
[2017-05-05] MEDS: DIGOXIN 0.25 MG TABLET PO SCH (09:01)
[2017-05-05] MEDS: AMIODARONE 200 MG TABLET PO SCH ×2 (09:01→21:45)
[2017-05-05] MEDS: FUROSEMIDE 40 MG/4 ML IV SCH (09:01)
[2017-05-05] MEDS: GABAPENTIN 300 MG CAPSULE PO SCH ×2 (09:01→21:45)
[2017-05-05] MEDS: WARFARIN MODERAT DOSE PROTOCOL XX SCH (11:44)
[2017-05-05 13:36] VITALS: BP 100/60
[2017-05-05] MEDS ORDERED: WARFARIN 7.5 MG TABLET PO-COUM SCH (18:00)
[2017-05-05 19:05] VITALS: BP 96/65
[2017-05-06 00:46] VITALS: BP 97/62
[2017-05-06 05:07] LABS: INTERNATIONAL NORMALIZED RATIO 1.64 (0.93-1.1); PROTHROMBIN TIME 16.7 Seconds (9.6-11.5)
[2017-05-06 05:07] LABS: BASOPHILS # (AUTO) 0.06 x10^3/uL (0-0.1); BASOPHILS % (AUTO) 1 % (0-1); EOSINOPHILS # (AUTO) 0.26 x10^3/uL (0-0.4); EOSINOPHILS % (AUTO) 4 % (1-7); LYMPHOCYTES # (AUTO) 1.67 x10^3/uL (1-3.4); LYMPHOCYTES % (AUTO) 24 % (22-44); MD NO; MEAN CORPUSCULAR HEMOGLOBIN 31.9 pg (27.5-34.5); MEAN CORPUSCULAR HGB CONC 32.7 g/dL (33.2-36.2); MEAN CORPUSCULAR VOLUME 97.6 fL (81-97); MEAN PLATELET VOLUME 8.4 fL (7.4-10.4); MONOCYTES # (AUTO) 0.85 x10^3/uL (0.2-0.8); MONOCYTES % (AUTO) 12 % (2-9); NEUTROPHILS # (AUTO) 4.13 x10^3/uL (1.8-6.8); NEUTROPHILS % (AUTO) 59 % (42-75); PLATELET COUNT 266 x10^3/uL (130-400); RED BLOOD COUNT 4.04 x10^6/uL (4.38-5.82); RED CELL DISTRIBUTION WIDTH 17.8 % (9.4-14.8)
[2017-05-06 05:12] LABS: ALBUMIN 1.8 g/dL (3.4-5.0); ANION GAP 4 mmol/L (5-15); CALCIUM 8.1 mg/dL (8.5-10.1); CHLORIDE 100 mmol/L (98-107)
[2017-05-06 05:15] LABS: ALANINE AMINOTRANSFERASE 76 U/L (12-78); ALKALINE PHOSPHATASE 144 U/L (45-117); BILIRUBIN,TOTAL 0.5 mg/dL (0.2-1.0); CREATININE 0.54 mg/dL (0.7-1.3); TOTAL PROTEIN 6.2 g/dL (6.4-8.2)
[2017-05-06] MEDS: CARVEDILOL 3.125 MG TABLET PO SCH ×2 (05:43→17:18)
[2017-05-06 08:00] VITALS: BP 102/68
[2017-05-06] MEDS: ALBUTEROL/IPRATROPIUM 2.5MG/0.5MG, 3 ML NPPB SCH ×3 (09:00→20:57)
[2017-05-06] MEDS: FUROSEMIDE 40 MG TABLET PO SCH (09:21)
[2017-05-06] MEDS: GABAPENTIN 300 MG CAPSULE PO SCH ×2 (09:21→20:43)
[2017-05-06] MEDS: SENNA/DOCUSATE TABLET PO SCH (09:21)
[2017-05-06] MEDS: DIGOXIN 0.25 MG TABLET PO SCH (09:21)
[2017-05-06] MEDS: MULTIVITAMIN LIQUID PO SCH (09:21)
[2017-05-06] MEDS: NYSTATIN TOPICAL POWDER 15GM TP SCH ×2 (09:22→20:43)
[2017-05-06] MEDS: WARFARIN MODERAT DOSE PROTOCOL XX SCH (09:22)
[2017-05-06] MEDS: AMIODARONE 200 MG TABLET PO SCH ×2 (09:22→20:43)
[2017-05-06] MEDS: RAMIPRIL 2.5 MG CAPSULE PO SCH (09:22)
[2017-05-06] MEDS: SPIRONOLACTONE 25 MG TABLET PO SCH (09:22)
[2017-05-06 13:55] VITALS: BP 110/75
[2017-05-06 17:18] VITALS: BP 105/58
[2017-05-06] MEDS ORDERED: WARFARIN 10 MG TABLET PO-COUM SCH (18:00)
[2017-05-06 19:23] VITALS: BP 103/69
[2017-05-07 01:23] VITALS: BP 129/70
[2017-05-07 05:20] LABS: INTERNATIONAL NORMALIZED RATIO 1.83 (0.93-1.1); PROTHROMBIN TIME 18.6 Seconds (9.6-11.5)
[2017-05-07] MEDS: CARVEDILOL 3.125 MG TABLET PO SCH ×2 (06:11→17:26)
[2017-05-07 06:46] VITALS: BP 111/76
[2017-05-07] MEDS: ALBUTEROL/IPRATROPIUM 2.5MG/0.5MG, 3 ML NPPB SCH ×3 (08:09→20:49)
[2017-05-07] MEDS: NYSTATIN TOPICAL POWDER 15GM TP SCH ×2 (09:13→20:39)
[2017-05-07] MEDS: WARFARIN MODERAT DOSE PROTOCOL XX SCH (09:13)
[2017-05-07] MEDS: SPIRONOLACTONE 25 MG TABLET PO SCH (09:19)
[2017-05-07] MEDS: GABAPENTIN 300 MG CAPSULE PO SCH ×2 (09:19→20:37)
[2017-05-07] MEDS: DIGOXIN 0.25 MG TABLET PO SCH (09:19)
[2017-05-07] MEDS: AMIODARONE 200 MG TABLET PO SCH ×2 (09:19→20:37)
[2017-05-07] MEDS: SENNA/DOCUSATE TABLET PO SCH (09:20)
[2017-05-07] MEDS: RAMIPRIL 2.5 MG CAPSULE PO SCH (09:20)
[2017-05-07] MEDS: FUROSEMIDE 40 MG TABLET PO SCH (09:20)
[2017-05-07] MEDS: MULTIVITAMIN LIQUID PO SCH (09:20)
[2017-05-07] MEDS: POLYETHYLENE GLYCOL 17 GM PACKET PO PRN (12:55)
[2017-05-07 13:58] VITALS: BP 134/90
[2017-05-07 17:25] VITALS: BP 124/69
[2017-05-07] MEDS ORDERED: WARFARIN 10 MG TABLET PO-COUM SCH (18:00)
[2017-05-07 19:45] VITALS: BP 113/71
[2017-05-08 00:49] VITALS: BP 123/82
[2017-05-08 05:02] LABS: INTERNATIONAL NORMALIZED RATIO 2.88 (0.93-1.1); PROTHROMBIN TIME 29.1 Seconds (9.6-11.5)
[2017-05-08 05:05] LABS: BASOPHILS # (AUTO) 0.04 x10^3/uL (0-0.1); BASOPHILS % (AUTO) 0 % (0-1); EOSINOPHILS # (AUTO) 0.26 x10^3/uL (0-0.4); EOSINOPHILS % (AUTO) 3 % (1-7); LYMPHOCYTES # (AUTO) 1.99 x10^3/uL (1-3.4); LYMPHOCYTES % (AUTO) 22 % (22-44); MD NO; MEAN CORPUSCULAR HGB CONC 33.2 g/dL (33.2-36.2); MEAN CORPUSCULAR VOLUME 96.5 fL (81-97); MEAN PLATELET VOLUME 8.8 fL (7.4-10.4); MONOCYTES # (AUTO) 0.78 x10^3/uL (0.2-0.8); MONOCYTES % (AUTO) 9 % (2-9); NEUTROPHILS # (AUTO) 5.92 x10^3/uL (1.8-6.8); NEUTROPHILS % (AUTO) 66 % (42-75); PLATELET COUNT 291 x10^3/uL (130-400); RED BLOOD COUNT 4.19 x10^6/uL (4.38-5.82); RED CELL DISTRIBUTION WIDTH 17.5 % (9.4-14.8)
[2017-05-08 05:10] LABS: CALCIUM 8.7 mg/dL (8.5-10.1); CHLORIDE 103 mmol/L (98-107)
[2017-05-08 05:16] LABS: ALANINE AMINOTRANSFERASE 63 U/L (12-78); ALBUMIN 1.9 g/dL (3.4-5.0); ALKALINE PHOSPHATASE 139 U/L (45-117); ANION GAP 3 mmol/L (5-15); BILIRUBIN,TOTAL 0.4 mg/dL (0.2-1.0); CREATININE 0.88 mg/dL (0.7-1.3); TOTAL PROTEIN 6.6 g/dL (6.4-8.2)
[2017-05-08] MEDS: CARVEDILOL 3.125 MG TABLET PO SCH ×2 (05:21→18:43)
[2017-05-08 09:00] VITALS: BP 103/57
[2017-05-08 10:02] VITALS: BP 106/69
[2017-05-08] MEDS: MULTIVITAMIN LIQUID PO SCH (10:32)
[2017-05-08] MEDS: RAMIPRIL 2.5 MG CAPSULE PO SCH (10:33)
[2017-05-08] MEDS: GABAPENTIN 300 MG CAPSULE PO SCH ×2 (10:33→22:05)
[2017-05-08] MEDS: AMIODARONE 200 MG TABLET PO SCH ×2 (10:34→22:05)
[2017-05-08] MEDS: FUROSEMIDE 40 MG TABLET PO SCH (10:34)
[2017-05-08] MEDS: DIGOXIN 0.25 MG TABLET PO SCH (10:34)
[2017-05-08] MEDS: SENNA/DOCUSATE TABLET PO SCH (10:34)
[2017-05-08] MEDS: NYSTATIN TOPICAL POWDER 15GM TP SCH ×2 (10:35→21:00)
[2017-05-08] MEDS: ALBUTEROL/IPRATROPIUM 2.5MG/0.5MG, 3 ML NPPB SCH ×3 (11:00→21:10)
[2017-05-08] MEDS: WARFARIN MODERAT DOSE PROTOCOL XX SCH (12:00)
[2017-05-08 14:32] VITALS: BP 128/87
[2017-05-08] MEDS ORDERED: WARFARIN 3 MG TABLET PO-COUM ONE (18:00)
[2017-05-08 18:41] VITALS: BP 118/78
[2017-05-08 19:10] VITALS: BP 115/79
[2017-05-09 01:32] VITALS: BP 126/89
[2017-05-09 06:03] VITALS: BP 123/87
[2017-05-09] MEDS: CARVEDILOL 3.125 MG TABLET PO SCH ×2 (06:06→17:42)
[2017-05-09 06:09] LABS: INTERNATIONAL NORMALIZED RATIO 3.73 (0.93-1.1); PROTHROMBIN TIME 37.8 Seconds (9.6-11.5)
[2017-05-09 06:17] LABS: CHLORIDE 103 mmol/L (98-107)
[2017-05-09 06:30] LABS: ANION GAP 6 mmol/L (5-15); CALCIUM 9.1 mg/dL (8.5-10.1); CREATININE 0.58 mg/dL (0.7-1.3)
[2017-05-09] MEDS: RAMIPRIL 2.5 MG CAPSULE PO SCH (09:00)
[2017-05-09] MEDS: SENNA/DOCUSATE TABLET PO SCH (09:00)
[2017-05-09] MEDS ORDERED: SPIRONOLACTONE 25 MG TABLET PO SCH (09:00)
[2017-05-09 09:04] VITALS: BP 101/59
[2017-05-09] MEDS: GABAPENTIN 300 MG CAPSULE PO SCH ×2 (09:09→20:28)
[2017-05-09] MEDS: DIGOXIN 0.25 MG TABLET PO SCH (09:09)
[2017-05-09] MEDS: FUROSEMIDE 40 MG TABLET PO SCH (09:09)
[2017-05-09] MEDS: MULTIVITAMIN LIQUID PO SCH (09:10)
[2017-05-09] MEDS: NYSTATIN TOPICAL POWDER 15GM TP SCH ×2 (09:11→20:30)
[2017-05-09] MEDS: ALBUTEROL/IPRATROPIUM 2.5MG/0.5MG, 3 ML NPPB SCH ×3 (09:35→19:45)
[2017-05-09] MEDS ORDERED: PROCHLORPERAZINE 5 MG/ML, 2ML IVPush PRN (10:30)
[2017-05-09] MEDS: WARFARIN MODERAT DOSE PROTOCOL XX SCH (12:00)
[2017-05-09 12:04] VITALS: BP 109/71
[2017-05-09] MEDS: AMIODARONE 200 MG TABLET PO SCH ×2 (12:07→20:29)
[2017-05-09 17:40] VITALS: BP 108/68
[2017-05-09] MEDS ORDERED: WARFARIN 1 MG TABLET PO-COUM ONE (18:00)
[2017-05-09 19:22] VITALS: BP 122/81
[2017-05-10 01:26] VITALS: BP 112/76
[2017-05-10 05:15] LABS: INTERNATIONAL NORMALIZED RATIO 3.18 (0.93-1.1); PROTHROMBIN TIME 32.3 Seconds (9.6-11.5)
[2017-05-10] MEDS: CARVEDILOL 3.125 MG TABLET PO SCH ×2 (05:31→17:18)
[2017-05-10 08:25] VITALS: BP 102/59
[2017-05-10] MEDS: ALBUTEROL/IPRATROPIUM 2.5MG/0.5MG, 3 ML NPPB SCH ×3 (08:35→21:00)
[2017-05-10] MEDS: RAMIPRIL 2.5 MG CAPSULE PO SCH (09:00)
[2017-05-10] MEDS: SENNA/DOCUSATE TABLET PO SCH (09:00)
[2017-05-10] MEDS: NYSTATIN TOPICAL POWDER 15GM TP SCH ×2 (09:00→20:51)
[2017-05-10] MEDS: AMIODARONE 200 MG TABLET PO SCH ×2 (09:25→20:50)
[2017-05-10] MEDS: FUROSEMIDE 40 MG TABLET PO SCH (09:25)
[2017-05-10] MEDS: GABAPENTIN 300 MG CAPSULE PO SCH ×2 (09:26→20:50)
[2017-05-10] MEDS: DIGOXIN 0.25 MG TABLET PO SCH (09:28)
[2017-05-10] MEDS: MULTIVITAMIN LIQUID PO SCH (09:28)
[2017-05-10] MEDS: WARFARIN MODERAT DOSE PROTOCOL XX SCH (12:00)
[2017-05-10 17:07] VITALS: BP 108/69
[2017-05-10] MEDS ORDERED: WARFARIN 1 MG TABLET PO-COUM ONE (18:00)
[2017-05-10 20:11] VITALS: BP 97/61
[2017-05-11 04:32] VITALS: BP 119/67
[2017-05-11] MEDS: CARVEDILOL 3.125 MG TABLET PO SCH ×2 (05:34→17:04)
[2017-05-11 06:02] LABS: INTERNATIONAL NORMALIZED RATIO 2.32 (0.93-1.1); PROTHROMBIN TIME 23.7 Seconds (9.6-11.5)
[2017-05-11] MEDS: ALBUTEROL/IPRATROPIUM 2.5MG/0.5MG, 3 ML NPPB SCH ×3 (09:00→20:57)
[2017-05-11] MEDS: NYSTATIN TOPICAL POWDER 15GM TP SCH ×2 (09:00→21:00)
[2017-05-11 09:19] VITALS: BP 117/75
[2017-05-11] MEDS: FUROSEMIDE 40 MG TABLET PO SCH (09:31)
[2017-05-11] MEDS: MULTIVITAMIN LIQUID PO SCH (09:32)
[2017-05-11] MEDS: AMIODARONE 200 MG TABLET PO SCH ×2 (09:32→21:14)
[2017-05-11] MEDS: DIGOXIN 0.25 MG TABLET PO SCH (09:32)
[2017-05-11] MEDS: SENNA/DOCUSATE TABLET PO SCH (09:32)
[2017-05-11] MEDS: GABAPENTIN 300 MG CAPSULE PO SCH ×2 (09:32→21:14)
[2017-05-11] MEDS: RAMIPRIL 2.5 MG CAPSULE PO SCH (09:33)
[2017-05-11] MEDS: POLYETHYLENE GLYCOL 17 GM PACKET PO PRN (09:38)
[2017-05-11] MEDS: WARFARIN MODERAT DOSE PROTOCOL XX SCH (12:00)
[2017-05-11 14:32] VITALS: BP 125/70
[2017-05-11] MEDS ORDERED: WARFARIN 2.5 MG TABLET PO-COUM ONE (18:00)
[2017-05-11 20:31] VITALS: BP 102/65
[2017-05-12 03:02] VITALS: BP 117/75
[2017-05-12] MEDS: CARVEDILOL 3.125 MG TABLET PO SCH ×2 (05:39→17:58)
[2017-05-12 06:18] LABS: INTERNATIONAL NORMALIZED RATIO 1.88 (0.93-1.1); PROTHROMBIN TIME 19.3 Seconds (9.6-11.5)
[2017-05-12 07:16] VITALS: BP 96/61
[2017-05-12] MEDS: ALBUTEROL/IPRATROPIUM 2.5MG/0.5MG, 3 ML NPPB SCH ×3 (08:07→19:58)
[2017-05-12] MEDS: SENNA/DOCUSATE TABLET PO SCH (09:27)
[2017-05-12] MEDS: GABAPENTIN 300 MG CAPSULE PO SCH ×2 (09:27→20:53)
[2017-05-12] MEDS: DIGOXIN 0.25 MG TABLET PO SCH (09:28)
[2017-05-12] MEDS: FUROSEMIDE 40 MG TABLET PO SCH (09:28)
[2017-05-12] MEDS: AMIODARONE 200 MG TABLET PO SCH ×2 (09:30→20:53)
[2017-05-12] MEDS: MULTIVITAMIN LIQUID PO SCH (09:31)
[2017-05-12] MEDS: RAMIPRIL 2.5 MG CAPSULE PO SCH (09:31)
[2017-05-12] MEDS: NYSTATIN TOPICAL POWDER 15GM TP SCH ×2 (09:33→20:51)
[2017-05-12 09:34] VITALS: BP 113/96
[2017-05-12 13:13] VITALS: BP 118/69
[2017-05-12] MEDS: WARFARIN MODERAT DOSE PROTOCOL XX SCH (15:52)
[2017-05-12] MEDS ORDERED: WARFARIN 5 MG TABLET PO-COUM ONE (18:00)
[2017-05-12 20:34] VITALS: BP 102/69
[2017-05-13 02:18] VITALS: BP 110/75
[2017-05-13 05:32] VITALS: BP 111/78
[2017-05-13] MEDS: CARVEDILOL 3.125 MG TABLET PO SCH ×2 (05:33→17:57)
[2017-05-13 05:49] LABS: INTERNATIONAL NORMALIZED RATIO 1.61 (0.93-1.1); PROTHROMBIN TIME 16.6 Seconds (9.6-11.5)
[2017-05-13 08:05] VITALS: BP 102/68
[2017-05-13] MEDS: ALBUTEROL/IPRATROPIUM 2.5MG/0.5MG, 3 ML NPPB SCH ×3 (09:00→19:30)
[2017-05-13] MEDS: NYSTATIN TOPICAL POWDER 15GM TP SCH ×2 (09:00→20:29)
[2017-05-13] MEDS: MULTIVITAMIN LIQUID PO SCH (09:03)
[2017-05-13] MEDS: RAMIPRIL 2.5 MG CAPSULE PO SCH (09:04)
[2017-05-13] MEDS: DIGOXIN 0.25 MG TABLET PO SCH (09:05)
[2017-05-13] MEDS: FUROSEMIDE 40 MG TABLET PO SCH (09:05)
[2017-05-13] MEDS: GABAPENTIN 300 MG CAPSULE PO SCH ×2 (09:05→20:23)
[2017-05-13] MEDS: AMIODARONE 200 MG TABLET PO SCH ×2 (09:05→20:23)
[2017-05-13] MEDS: SENNA/DOCUSATE TABLET PO SCH (09:06)
[2017-05-13] MEDS ORDERED: NYST60PO TP (09:37)
[2017-05-13] MEDS ORDERED: HYDR15SO3 PO (09:37)
[2017-05-13] MEDS ORDERED: HYDR-3241 PO (09:37)
[2017-05-13] MEDS ORDERED: OXYC5SOL8 PO (09:37)
[2017-05-13] MEDS ORDERED: CARV3.1212 PO (09:37)
[2017-05-13] MEDS ORDERED: AMIO200T42 PO (09:37)
[2017-05-13] MEDS ORDERED: FURO40TA6 PO (09:37)
[2017-05-13] MEDS ORDERED: RAMI2.5C PO (09:37)
[2017-05-13] MEDS ORDERED: MULTIVITAMIN PO (09:37)
[2017-05-13] MEDS ORDERED: GABA300C10 PO (09:37)
[2017-05-13] MEDS ORDERED: DIGO250T PO (09:37)
[2017-05-13] MEDS ORDERED: Initiate Coumadin Protocol MC (09:37)
[2017-05-13] MEDS: WARFARIN MODERAT DOSE PROTOCOL XX SCH (10:57)
[2017-05-13 14:55] VITALS: BP 106/69
[2017-05-13] MEDS ORDERED: WARFARIN 10 MG TABLET PO-COUM ONE (18:00)
[2017-05-13 21:12] VITALS: BP 118/67
[2017-05-14 00:31] VITALS: BP 111/76
[2017-05-14 05:23] VITALS: BP 104/73
[2017-05-14] MEDS: CARVEDILOL 3.125 MG TABLET PO SCH ×2 (05:23→18:09)
[2017-05-14 05:53] LABS: INTERNATIONAL NORMALIZED RATIO 1.61 (0.93-1.1); PROTHROMBIN TIME 16.6 Seconds (9.6-11.5)
[2017-05-14 07:39] VITALS: BP 113/76
[2017-05-14] MEDS: ALBUTEROL/IPRATROPIUM 2.5MG/0.5MG, 3 ML NPPB SCH ×3 (07:51→21:22)
[2017-05-14] MEDS: NYSTATIN TOPICAL POWDER 15GM TP SCH ×2 (09:00→21:00)
[2017-05-14] MEDS: MULTIVITAMIN LIQUID PO SCH (09:45)
[2017-05-14] MEDS: GABAPENTIN 300 MG CAPSULE PO SCH ×2 (09:46→20:47)
[2017-05-14] MEDS: SENNA/DOCUSATE TABLET PO SCH (09:46)
[2017-05-14] MEDS: DIGOXIN 0.25 MG TABLET PO SCH (09:46)
[2017-05-14] MEDS: FUROSEMIDE 40 MG TABLET PO SCH (09:46)
[2017-05-14] MEDS: RAMIPRIL 2.5 MG CAPSULE PO SCH (09:46)
[2017-05-14] MEDS: AMIODARONE 200 MG TABLET PO SCH ×2 (10:50→20:47)
[2017-05-14] MEDS: WARFARIN MODERAT DOSE PROTOCOL XX SCH (12:00)
[2017-05-14 12:35] VITALS: BP 100/64
[2017-05-14] MEDS ORDERED: WARFARIN 10 MG TABLET PO-COUM ONE (18:00)
[2017-05-14 20:41] VITALS: BP 98/70
[2017-05-15 01:14] VITALS: BP 107/72
[2017-05-15 05:37] LABS: INTERNATIONAL NORMALIZED RATIO 2.03 (0.93-1.1); PROTHROMBIN TIME 20.8 Seconds (9.6-11.5)
[2017-05-15 06:32] VITALS: BP 117/61
[2017-05-15] MEDS: CARVEDILOL 3.125 MG TABLET PO SCH ×2 (06:33→18:18)
[2017-05-15 07:22] VITALS: BP 118/75
[2017-05-15] MEDS: RAMIPRIL 2.5 MG CAPSULE PO SCH (09:03)
[2017-05-15] MEDS: GABAPENTIN 300 MG CAPSULE PO SCH ×2 (09:04→21:00)
[2017-05-15] MEDS: SENNA/DOCUSATE TABLET PO SCH (09:05)
[2017-05-15] MEDS: MULTIVITAMIN LIQUID PO SCH (09:05)
[2017-05-15] MEDS: NYSTATIN TOPICAL POWDER 15GM TP SCH ×2 (09:05→21:00)
[2017-05-15 09:10] VITALS: BP 98/62
[2017-05-15] MEDS: AMIODARONE 200 MG TABLET PO SCH ×2 (09:40→20:59)
[2017-05-15] MEDS: DIGOXIN 0.25 MG TABLET PO SCH (09:40)
[2017-05-15] MEDS: FUROSEMIDE 40 MG TABLET PO SCH (09:40)
[2017-05-15] MEDS: ALBUTEROL/IPRATROPIUM 2.5MG/0.5MG, 3 ML NPPB SCH ×3 (11:10→20:10)
[2017-05-15] MEDS: WARFARIN MODERAT DOSE PROTOCOL XX SCH (12:00)
[2017-05-15 16:55] VITALS: BP 122/84
[2017-05-15] MEDS ORDERED: WARFARIN 7.5 MG TABLET PO-COUM ONE (18:00)
[2017-05-15 20:31] VITALS: BP 116/71
[2017-05-16 04:24] VITALS: BP 115/81
[2017-05-16 05:23] LABS: BASOPHILS # (AUTO) 0.07 x10^3/uL (0-0.1); BASOPHILS % (AUTO) 1 % (0-1); EOSINOPHILS # (AUTO) 0.69 x10^3/uL (0-0.4); EOSINOPHILS % (AUTO) 11 % (1-7); LYMPHOCYTES # (AUTO) 2.06 x10^3/uL (1-3.4); LYMPHOCYTES % (AUTO) 32 % (22-44); MD NO; MEAN CORPUSCULAR HEMOGLOBIN 31.8 pg (27.5-34.5); MEAN CORPUSCULAR HGB CONC 33.5 g/dL (33.2-36.2); MEAN PLATELET VOLUME 8.9 fL (7.4-10.4); MONOCYTES # (AUTO) 0.89 x10^3/uL (0.2-0.8); MONOCYTES % (AUTO) 14 % (2-9); NEUTROPHILS # (AUTO) 2.67 x10^3/uL (1.8-6.8); NEUTROPHILS % (AUTO) 42 % (42-75); PLATELET COUNT 293 x10^3/uL (130-400); RED BLOOD COUNT 4.34 x10^6/uL (4.38-5.82); RED CELL DISTRIBUTION WIDTH 17.4 % (9.4-14.8)
[2017-05-16 05:24] LABS: INTERNATIONAL NORMALIZED RATIO 2.63 (0.93-1.1); PROTHROMBIN TIME 26.8 Seconds (9.6-11.5)
[2017-05-16] MEDS: CARVEDILOL 3.125 MG TABLET PO SCH (05:27)
[2017-05-16 05:33] LABS: ANION GAP 4 mmol/L (5-15); CHLORIDE 104 mmol/L (98-107)
[2017-05-16 05:34] LABS: CREATININE 0.78 mg/dL (0.7-1.3)
[2017-05-16 08:06] VITALS: BP 123/72
[2017-05-16] MEDS: ALBUTEROL/IPRATROPIUM 2.5MG/0.5MG, 3 ML NPPB SCH ×2 (08:18→16:00)
[2017-05-16] MEDS: SENNA/DOCUSATE TABLET PO SCH (08:33)
[2017-05-16] MEDS: MULTIVITAMIN LIQUID PO SCH (08:34)
[2017-05-16] MEDS: AMIODARONE 200 MG TABLET PO SCH (08:34)
[2017-05-16] MEDS: RAMIPRIL 2.5 MG CAPSULE PO SCH (08:34)
[2017-05-16] MEDS: DIGOXIN 0.25 MG TABLET PO SCH (08:34)
[2017-05-16] MEDS: NYSTATIN TOPICAL POWDER 15GM TP SCH (08:34)
[2017-05-16] MEDS: FUROSEMIDE 40 MG TABLET PO SCH (08:34)
[2017-05-16] MEDS: GABAPENTIN 300 MG CAPSULE PO SCH (08:34)
[2017-05-16] MEDS: POLYETHYLENE GLYCOL 17 GM PACKET PO PRN (09:47)
[2017-05-16] MEDS: WARFARIN MODERAT DOSE PROTOCOL XX SCH (12:00)
[2017-05-16 13:47] VITALS: BP 102/63
[2017-05-16] MEDS ORDERED: WARFARIN 5 MG TABLET PO-COUM ONE (18:00)
== END 2017-05-16 17:40 | DRG 853 ==
LOC: ED 21:37 → SUATTDRO 22:26 → EDIP 22:32 → CCU 04-21 00:51 → 5SO 04-26 11:10 → CCU 04-28 22:07 → 5SO 04-29 17:56 → 4NOR 05-05 18:44
PROVIDERS: ADMIT Hospitalist; ATTEND Internal Medicine
PROC: 0T9B70Z Drainage of Bladder with Drainage Device, Via Natural or Artificial Opening (ICD-10-PCS; principal; 2017-04-21)
PROC: 04CL0ZZ Extirpation of Matter from Left Femoral Artery, Open Approach (ICD-10-PCS; 2017-04-21)
PROC: 5A1955Z Respiratory Ventilation, Greater than 96 Consecutive Hours (ICD-10-PCS; 2017-04-21)
PROC: 04CQ0ZZ Extirpation of Matter from Left Anterior Tibial Artery, Open Approach (ICD-10-PCS; 2017-04-21)
PROC: B41G1ZZ Fluoroscopy of Left Lower Extremity Arteries using Low Osmolar Contrast (ICD-10-PCS; 2017-04-21)
PROC: 0BH17EZ Insertion of Endotracheal Airway into Trachea, Via Natural or Artificial Opening (ICD-10-PCS; 2017-04-21)
PROC: 0B9F8ZX Drainage of Right Lower Lung Lobe, Via Natural or Artificial Opening Endoscopic, Diagnostic (ICD-10-PCS; 2017-04-22)
PROC: 04CL0ZZ Extirpation of Matter from Left Femoral Artery, Open Approach (ICD-10-PCS; 2017-04-24)
PROC: [UNRECOGNIZED PROCEDURE] (2017-04-24)
PROC: [UNRECOGNIZED PROCEDURE] (2017-04-24)
PROC: B41G1ZZ Fluoroscopy of Left Lower Extremity Arteries using Low Osmolar Contrast (ICD-10-PCS; 2017-04-24)
PROC: 0W9930Z Drainage of Right Pleural Cavity with Drainage Device, Percutaneous Approach (ICD-10-PCS; 2017-04-24)
PROC: 0Y6D0Z3 Detachment at Left Upper Leg, Low, Open Approach (ICD-10-PCS; 2017-04-28)
DX: A41.9 Sepsis, unspecified organism (principal); E43 Unspecified severe protein-calorie malnutrition; N17.0 Acute kidney failure with tubular necrosis; J96.01 Acute respiratory failure with hypoxia; Z99.11 Dependence on respirator [ventilator] status; G93.41 Metabolic encephalopathy; I70.262 Atherosclerosis of native arteries of extremities with gangrene, left leg; J18.1 Lobar pneumonia, unspecified organism; I50.23 Acute on chronic systolic (congestive) heart failure; D68.59 Other primary thrombophilia; B37.49 Other urogenital candidiasis; J44.0 Chronic obstructive pulmonary disease with (acute) lower respiratory infection; I42.9 Cardiomyopathy, unspecified; J98.19 Other pulmonary collapse; E87.5 Hyperkalemia; D75.82 Heparin induced thrombocytopenia (HIT); R65.20 Severe sepsis without septic shock; E86.0 Dehydration; K80.20 Calculus of gallbladder without cholecystitis without obstruction; F17.210 Nicotine dependence, cigarettes, uncomplicated; G54.6 Phantom limb syndrome with pain; I11.0 Hypertensive heart disease with heart failure; I48.91 Unspecified atrial fibrillation; K64.9 Unspecified hemorrhoids; M21.372 Foot drop, left foot; Z79.01 Long term (current) use of anticoagulants; Z80.0 Family history of malignant neoplasm of digestive organs; Z23 Encounter for immunization
CPT/HCPCS: 31624; 36415; 36569; 36600; 71010; 71250; 75710; 76937; 77001; 80048; 80053; 80076; 80162; 80202; 81001; 82040; 82330; 82803; 82947; 83605; 83735; 83880; 84100; 84132; 84145; 84295; 84439; 84484; 85014; 85018; 85025; 85384; 85520; 85610; 85730; 86022; 86706; 86803; 87015; 87040; 87070; 87081; 87086; 87102; 87116; 87205; 87206; 87340; 88307; 90686; 90732; 93005; 93306; 93926; 93970; 94002; 94003; 94150; 94640; 96365; 96366; 96368; 96375; 96376; C1729; J0171; J0295; J0690; J0883; J1100; J1170; J1644; J1940; J1956; J2250; J2405; J2543; J2704; J2710; J2720; J3010; J3370; J3411; J3490; J7620; Q9966; Q9967; C1751; C1757; C1769; C1894; C2628; C9113; J0282; J0330; J1160; J7030; J7040; J7050; J7060